=== PATIENT | female | born 1940 | race Caucasian/White ===

== ENCOUNTER → 2016-07-13 | Outpatient (CLI) | payer BC, OTHER ==
[~2016-07-13] MED LIST: ALBUAER2 INH; EPP3/2 IM; ERGO1CAP35 PO; HYDR12.55 PO; LISI-461 PO; PRM/3 PO; TRAM-10 PO
[2016-07-13 17:50] LABS: BLOOD UREA NITROGEN 25 mg/dl (7-18); BUN/CREATININE RATIO 20.5 (10-20); CALCIUM 9.2 mg/dl (8.5-10.1); CARBON DIOXIDE 27 mmol/L (21-32); CHLORIDE 105 mmol/L (98-107); GLUCOSE 80 mg/dl (70-99); POTASSIUM 3.8 mmol/L (3.5-5.1); SODIUM 141 mmol/L (136-145)
== END | disposition home or self-care (01) ==
LOC: C.LABPBG 13:20
PROVIDERS: ATTEND Family Medicine
DX: R94.6 Abnormal results of thyroid function studies (principal); I10 Essential (primary) hypertension

== ENCOUNTER → 2016-07-31 | Outpatient (CLI) | payer BC, OTHER ==
--- NOTE | 2016-08-03 13:48 | MAMMOGRAPHY REPORT ---
BILATERAL DIGITAL SCREENING MAMMOGRAM WITH CAD: 07/31/2016 CLINICAL HISTORY: Routine screening. The patient reported to the technologist that she has right br east tenderness since her dog jumped on her a few months ago. TECHNIQUE: Current study was also evaluated with a Computer Aided Detection (CAD) system. COMPARISON: Comparison is made to exams dated: 04/06/2014 mammogram, 10/23/2010 mammogram, 08/15/2014 mammogram - [facility], and 12/12/2007 mammogram - [facility]. BREAST COMPOSITION: The tissue of both breasts is heterogeneously dense, which may obscure small ma sses. FINDINGS: No suspicious masses, calcifications, or areas of architectural distortion are noted in e ither breast. There has been no significant interval change compared to prior exams. Bilateral nanette gn-appearing calcifications are not significantly changed. Round circumscribed benign-appearing mas s in the left 3:00 anterior breast is again noted, and was shown to represent a benign cyst on the rior 2014 ultrasound exam. IMPRESSION: ACR BI-RADS CATEGORY 2: BENIGN There is no mammographic evidence of malignancy. A 1 year screening mammogram is recommended. The p atient will receive written notification of the results. Approximately 10% of breast cancers are not detected with mammography. A negative mammographic repor t should not delay biopsy if a clinically suggestive mass is present. Sasha Alegria M.D. ah/:07/31/2016 15:38:24 [employer] Loft Repairer: Bing Valdovinos RT(R)(M), [facility] letter sent: Normal 1/2 BI-RADS Code: ACR BI-RADS Category 2: Benign
== END | disposition home or self-care (01) ==
LOC: C.MAMM 13:20
PROVIDERS: ATTEND Family Medicine
DX: Z12.31 Encounter for screening mammogram for malignant neoplasm of breast (principal)

== ENCOUNTER → 2016-09-24 | Outpatient (CLI) | payer BC, OTHER ==
[2016-09-24 18:09] LABS: BASO % 0.6 %; BASO ABS # 0.04 K/uL (0-0.2); COMPLETE YES; HEMATOCRIT 37.6 % (37-47); LYMPH % 25.1 %; LYMPH ABS # 1.72 K/uL (1.2-3.4); MEAN CELL VOLUME 90.2 fL (80-100); MEAN CORPUSCULAR HEMOGLOBIN 28.8 pg (25-34); MEAN CORPUSCULAR HGB CONC 31.9 g/dl (32-36); MEAN PLATELET VOLUME 11.9 fL (7.4-10.4); MONO % 6.6 %; NEUT % 61.7 %; PLATELET COUNT 231 K/uL (130-400); RED BLOOD COUNT 4.17 M/uL (4.2-5.4); WHITE BLOOD COUNT 6.85 K/uL (4.8-10.8)
[2016-09-24 18:22] LABS: ALT/SGPT 17 U/L (12-78); AST/SGOT 15 U/L (15-37); BLOOD UREA NITROGEN 16 mg/dl (7-18); BUN/CREATININE RATIO 14.3 (10-20); CALCIUM 8.7 mg/dl (8.5-10.1); CARBON DIOXIDE 27 mmol/L (21-32); CHLORIDE 107 mmol/L (98-107); GLUCOSE 88 mg/dl (70-99); MAGNESIUM 2.3 mg/dl (1.8-2.4); POTASSIUM 3.5 mmol/L (3.5-5.1); SODIUM 140 mmol/L (136-145)
[2016-09-24 18:30] LABS: ALB/GLOB RATIO 1.1 (0.9-2); ALKALINE PHOSPHATASE 75 U/L (45-117); CHOLESTEROL 242 mg/dl (0-200); CHOLESTEROL/HDL RATIO 3.2; HDL CHOLESTEROL 76 mg/dl; LDL CHOLESTEROL CALCULATED 145 mg/dl; TRIGLYCERIDES 105 mg/dl (0-150); VERY LOW DENSITY LIPOPROT CALC 21 mg/dl
[2016-09-24 19:32] LABS: LYME DISEASE AB IGM NEG (NEG)
[2016-09-24 19:35] LABS: LYME DISEASE AB IGG NEG (NEG)
[2016-09-25 03:23] LABS: RAPID PLASMA REAGIN NONREACTIVE (NONREACT)
[2016-09-25 06:41] LABS: ESTIMATED AVERAGE GLUCOSE 123 mg/dl; HA1C FLAG Normal (Normal)
--- NOTE | 2016-10-01 11:00 | CODING QUERY MEDICAL NECESSITY ---
CQSUPPORTING DIAGNOSIS NEEDED A supporting diagnosis is required for the test/procedure performed on this patient in order for us to be reimbursed by the patient's insurance. Please provide a supporting diagnosis for the following test/procedure listed below next to the test name along with your signature. *If there is no additional diagnosis for this patient that would support the following test/procedure please document that below next to the test/procedure. Test(s)/Procedure(s) that require a supporting diagnosis: DOS 09/24/16 GLYCATED HEMOGLOBIN TEST SCREENING FOR SEXUALLY TRANSMITTED DISEASE Provider Signature: Date: Thank you Rebecca William Health Information Management Once completed, please kindly fax back to [phone] For questions please call [phone]
== END | disposition home or self-care (01) ==
LOC: C.LABPBG 10:57
PROVIDERS: ATTEND Nurse Practitioner Adult Health
DX: Z00.00 Encounter for general adult medical examination without abnormal findings (principal); M79.1 Myalgia; R20.2 Paresthesia of skin; R53.83 Other fatigue; E55.9 Vitamin D deficiency, unspecified; R94.6 Abnormal results of thyroid function studies; I10 Essential (primary) hypertension

== ENCOUNTER → 2017-01-21 | Outpatient (CLI) | payer BC, OTHER ==
[2017-01-21 12:32] LABS: BASO % 0.3 %; BASO ABS # 0.02 K/uL (0-0.2); COMPLETE YES; EOS % 6.5 %; HEMATOCRIT 38.2 % (37-47); IG% 0.3 %; LYMPH % 30.5 %; LYMPH ABS # 2.16 K/uL (1.2-3.4); MEAN CELL VOLUME 91.2 fL (80-100); MEAN CORPUSCULAR HEMOGLOBIN 28.6 pg (25-34); MEAN CORPUSCULAR HGB CONC 31.4 g/dl (32-36); MEAN PLATELET VOLUME 11.5 fL (7.4-10.4); MONO % 11.4 %; PLATELET COUNT 265 K/uL (130-400); RED BLOOD COUNT 4.19 M/uL (4.2-5.4); WHITE BLOOD COUNT 7.08 K/uL (4.8-10.8)
[2017-01-21 12:39] LABS: ALT/SGPT 15 U/L (12-78); BLOOD UREA NITROGEN 21 mg/dl (7-18); BUN/CREATININE RATIO 21.2 (10-20); CALCIUM 8.5 mg/dl (8.5-10.1); CARBON DIOXIDE 28 mmol/L (21-32); CHLORIDE 109 mmol/L (98-107); CHOLESTEROL 209 mg/dl (0-200); GLUCOSE 90 mg/dl (70-99); POTASSIUM 3.9 mmol/L (3.5-5.1); SODIUM 142 mmol/L (136-145); TRIGLYCERIDES 143 mg/dl (0-150); VERY LOW DENSITY LIPOPROT CALC 29 mg/dl
[2017-01-21 12:47] LABS: ESTIMATED AVERAGE GLUCOSE 126 mg/dl; HA1C FLAG Normal (Normal)
[2017-01-21 12:50] LABS: ALKALINE PHOSPHATASE 80 U/L (45-117); AST/SGOT 12 U/L (15-37); CHOLESTEROL/HDL RATIO 2.7; HDL CHOLESTEROL 77 mg/dl; LDL CHOLESTEROL CALCULATED 103 mg/dl
[2017-01-21 13:04] LABS: URINE APPEARANCE CLEAR (CLEAR); URINE BILIRUBIN NEG (NEG); URINE COLOR YELLOW; URINE EPITHELIAL CELL AUTO >30 /lpf (0-5); URINE NITRITE NEG (NEG); URINE SPECIFIC GRAVITY 1.023 (1.000-1.030); UROBILINOGEN NEG (NEG)
[2017-01-21 13:14] LABS: MANUAL MICROSCOPIC REQUIRED? NO; REVIEW REQ? NO
== END | disposition home or self-care (01) ==
LOC: C.LABPBG 08:09
PROVIDERS: ATTEND Family Medicine
DX: I10 Essential (primary) hypertension (principal); R73.03 Prediabetes; E78.5 Hyperlipidemia, unspecified; R42 Dizziness and giddiness

== ENCOUNTER → 2017-01-28 | Outpatient (CLI) | payer BC, OTHER ==
[~2017-01-28] MED LIST changes: +OPTIRAY 320 IV PRN
--- NOTE | 2017-01-28 10:58 | DIAGNOSTIC IMAGING REPORT ---
CT ABD/PELVIS COMBO CLINICAL HISTORY: Hematuria COMPARISON STUDY: Noncontrast CT scan dated 12/30/2014 TECHNIQUE: Unenhanced images were obtained through the abdomen and pelvis. The patient was injected with 50 cc of Optiray 320. After 5 minute delay, the patient was reimaged in a dynamic helical fashion during the additional administration of 43 cc of Optiray 320. A dose lowering technique was utilized adhering to the principles of ALARA. CT DOSE: 1323.38 mGycm FINDINGS: Lower chest: There are mild basilar atelectatic changes. Liver: There is scattered hepatic hypodensities, likely representing cysts. Gallbladder: Unremarkable. Spleen: Normal in size and attenuation. Pancreas: There is an 11 mm cystic lesion within the pancreatic head, possibly representing an IPMN. 12 month follow-up MRI study is recommended Adrenal glands: Unremarkable. Kidneys: No renal, ureteral, or bladder calculi are visualized. There is a 13 mm upper pole renal cyst containing a punctate mural calcification. No collecting system filling defects are visualized. There is incomplete left renal rotation. No ureteral defects are visualized. Bowel: There are no transition zones indicate bowel obstruction. There is colonic diverticulosis. There are no acute peridiverticular inflammatory changes. Peritoneum: There is no intraperitoneal free air or abdominal ascites. Vasculature: The abdominal aorta is normal in course and caliber. Adenopathy: None. Pelvic viscera: The bladder, and pelvic viscera are unremarkable. 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 No destructive lesions are visualized. There is a stable sclerotic lesion within the left symphysis pubis likely are presenting a bone island. IMPRESSION: 1. No renal, ureteral, or bladder calculi identified 2. 13 mm upper pole left renal cyst containing a punctate mural calcification 3. No collecting system or ureteral lesions identified 4. 11 mm cystic lesion within the pancreatic head possibly representing an IPMN. 12 month follow-up MRI is recommended Electronically signed by: Andrei Campbell M.D. 01/28/2017 10:57 AM Dictated Date/Time: 01/28/2017 10:49 AM
== END | disposition home or self-care (01) ==
LOC: C.CTS 10:06
PROVIDERS: ATTEND Family Medicine
DX: N28.1 Cyst of kidney, acquired (principal); R31.9 Hematuria, unspecified

== ENCOUNTER → 2017-04-29 | Outpatient (CLI) | payer BC ==
[~2017-04-29] MED LIST changes: -OPTIRAY 320 IV PRN
== END | disposition home or self-care (01) ==
LOC: C.PATHSPEC 11:56
PROVIDERS: ATTEND Urology
DX: R31.29 Other microscopic hematuria (principal); N28.1 Cyst of kidney, acquired

== ENCOUNTER → 2017-05-03 | Outpatient (CLI) | payer BC, OTHER ==
--- NOTE | 2017-05-03 14:13 | DIAGNOSTIC IMAGING REPORT ---
MRI OF THE RIGHT SHOULDER CLINICAL HISTORY: Chronic right shoulder pain. COMPARISON STUDY: No priors. TECHNIQUE: MRI of the right shoulder was performed utilizing various T1 and T2 weighted sequences in the axial, sagittal, coronal planes. IV contrast was not administered for this examination. FINDINGS: Rotator cuff: There is tendinopathy of the infraspinatus tendon with a large full-thickness tear. There is at least 2.4 cm of musculotendinous retraction. There is tendinopathy with extensive tearing of the supraspinatous tendon. A full-thickness tear measures at least 6 mm as seen on image #9. There is no significant musculotendinous retraction. There is tendinopathy of the subscapularis tendon which appears intact. The teres minor tendon is preserved. There is subacromial and subdeltoid bursal fluid. Productive degenerative change is seen at the acromioclavicular joint. Biceps tendon: The long head of the biceps tendon is mildly tendinopathy and located within the bicipital groove. The anchor is maintained. Labrum: There is degenerative fraying and truncation of the glenoid labrum. Shoulder joint: There is note that interpretation is suboptimal without plain film correlate. The examination is also degraded by motion artifact. A large Joint effusion. There is mild thinning of the articular cartilage over the glenoid humeral head. Spurring is seen along the inferior aspect of the right. Mild arthritic changes seen in the greater tuberosity. Musculature and soft tissues: There is generalized atrophy of the regional musculature. There is slightly asymmetric atrophy and intramuscular edema involving the body of infraspinatus. There is also mild edema within the body of supraspinatus. IMPRESSION: 1. There is tendinopathy of the infraspinatus with full-thickness rupture and at least 2.4 cm of musculotendinous retraction. 2. There is tendinopathy with extensive partial thickness tearing as well as a full-thickness tear of the supraspinatus tendon. No musculotendinous retraction is seen. 3. There is intramuscular edema and slightly asymmetric atrophy within the body of infraspinatus. 4. There is degenerative fraying and truncation of the labrum. 5. The long head of the biceps tendon appears intact. 6. Joint effusion and arthritic change as above. Electronically signed by: Horace Knight M.D. 05/03/2017 2:11 PM Dictated Date/Time: 05/03/2017 2:04 PM
== END | disposition home or self-care (01) ==
LOC: C.MRI 11:34
PROVIDERS: ATTEND Orthopaedic Surgery Sports Medicine
DX: M25.511 Pain in right shoulder (principal)

== ENCOUNTER → 2017-05-14 | Outpatient (CLI) | payer BC, OTHER ==
[2017-05-14 14:14] LABS: BASO % 0.3 %; BASO ABS # 0.02 K/uL (0-0.2); COMPLETE YES; EOS % 4.1 %; HEMATOCRIT 38.8 % (37-47); LYMPH % 26.2 %; LYMPH ABS # 1.54 K/uL (1.2-3.4); MEAN CORPUSCULAR HEMOGLOBIN 28.3 pg (25-34); MEAN CORPUSCULAR HGB CONC 32.2 g/dl (32-36); MEAN PLATELET VOLUME 10.9 fL (7.4-10.4); MONO % 5.1 %; NEUT % 64.3 %; PLATELET COUNT 213 K/uL (130-400); RED BLOOD COUNT 4.41 M/uL (4.2-5.4); WHITE BLOOD COUNT 5.88 K/uL (4.8-10.8)
[2017-05-14 14:36] LABS: BLOOD UREA NITROGEN 17 mg/dl (7-18); BUN/CREATININE RATIO 18.9 (10-20); CALCIUM 8.8 mg/dl (8.5-10.1); CARBON DIOXIDE 26 mmol/L (21-32); CHLORIDE 108 mmol/L (98-107); CREATININE 0.91 mg/dl (0.60-1.20); GLUCOSE 87 mg/dl (70-99); POTASSIUM 3.8 mmol/L (3.5-5.1); SODIUM 140 mmol/L (136-145)
--- NOTE | 2017-05-14 14:50 | DIAGNOSTIC IMAGING REPORT ---
CHEST 2 VIEWS ROUTINE CLINICAL HISTORY: PRE OP TESTING COMPARISON STUDY: 02/16/2016 FINDINGS: The bones soft tissues and hemidiaphragms are normal. The cardiomediastinal silhouette is normal. The lungs are clear. The pulmonary vasculature is normal. IMPRESSION: Negative chest. The above report was generated using voice recognition software. It may contain grammatical, syntax or spelling errors. Electronically signed by: Froylan Calix M.D. 05/14/2017 2:49 PM Dictated Date/Time: 05/14/2017 2:48 PM
== END | disposition home or self-care (01) ==
LOC: C.CPL 13:46
PROVIDERS: ATTEND Orthopaedic Surgery Sports Medicine
DX: Z01.810 Encounter for preprocedural cardiovascular examination (principal); Z01.811 Encounter for preprocedural respiratory examination; Z01.812 Encounter for preprocedural laboratory examination

== ENCOUNTER 2017-06-02 10:02 | Day surgery (SDC) | payer BC, OTHER ==
[2017-05-21 08:07] VITALS: BMI 25.0
--- NOTE | 2017-06-01 18:00 | HISTORY & PHYSICAL EXAMINATION ---
DATE OF ADMISSION: 06/02/2017 CHIEF COMPLAINT: Chronic right shoulder pain. HISTORY OF PRESENT ILLNESS: This is a 76-year-old female patient of Dr. Camargo'tristian complaining of right shoulder pain for a number of years now. She had no significant injury or trauma. She is noting progressively worsening symptoms over the last 3 months. MRI has confirmed impingement, distal clavicle, AC arthritis and a rotator cuff tear. After failure of conservative treatment, patient wishes to proceed with a right shoulder arthroscopic subacromial decompression, distal clavicle excision and rotator cuff repair. PAST MEDICAL HISTORY: Heart murmur, hypertension, asthma, osteoarthritis, acid reflux, hiatal hernia; she has dentures. SOCIAL HISTORY: Nonsmoker, nondrinker. PAST SURGICAL HISTORY: Hysterectomy, right knee surgery, left buttock and breast surgery and hemorrhoid surgery. FAMILY HISTORY: Noncontributory. REVIEW OF SYSTEMS: The patient complains of chronic right shoulder pain and weakness. Otherwise, denies any shortness of breath, chest pain, nausea, vomiting or any other joint complaints. MEDICATIONS: Include lisinopril and estradiol with tramadol as needed. Please see dosages and administrations on admission. ALLERGIES: INCLUDE CEFTIN AND SULFA. PHYSICAL EXAMINATION: GENERAL: Well-developed, well-nourished 76-year-old female in no acute distress. She is alert and oriented x3 and pleasant. HEENT: Normocephalic, atraumatic. Extraocular motions are intact. Pupils are equal and reactive to light. HEART: Regular rate and rhythm with a murmur of 2/6 appreciated. LUNGS: Clear. ABDOMEN: Soft and nontender, bowel sounds are present. EXTREMITIES: Right shoulder revealed external rotation strength of 3/5 and internal 4/5. Active range of motion of 45 degrees, passively to full range of motion. She has pain with active and passive range of motion. NEUROLOGIC: Neurovascularly, she is intact in her right upper extremity. DIAGNOSES: Right shoulder impingement, acromioclavicular arthritis and rotator cuff tear. She has a history of a heart murmur, hypertension, asthma, osteoarthritis, acid reflux, and hiatal hernia. PLAN: The patient was advised of her diagnosis. Indications, risks, benefits, and postop course have all been reviewed. The patient wishes to proceed with a right arthroscopic subacromial decompression, distal clavicle excision and rotator cuff repair on the shoulder. Necessary consent forms, preoperative testing and clearances will be obtained.
[~2017-06-02] VITALS: Ht 165.1 cm; Wt 68.2 kg
[~2017-06-02 10:02] MED LIST changes: -ALBUAER2 INH; +ATROPINE SULFATE 0.1 MG/ML 5ML SYR IV PRN; +CLINDAMYCIN 600 MG/54 ML D5W IV SCH; -ERGO1CAP35 PO; +ESTR0.5T3 PO; +EpHEDrine SULFATE INJ 50 MG/ML AMP IV PRN; +FENTANYL CITRATE INJ 50 MCG/1 ML 2 ML VIAL IV PRN; -HYDR12.55 PO; +LACTATED RINGER'S 1000ML 1,000 ML IV SCH; +LORA-741 PO; +ONDANSETRON INJ 2 MG/ML 2 ML VIAL IV PRN; -PRM/3 PO; +ROPIVACAINE 0.5% 5 MG/ML 30 ML VIAL ONE
[2017-06-02 10:30] VITALS: BP 174/71; PULSE 79; TEMP 36.3; O2SAT 100; Ht 165.1 cm; Wt 68.2 kg
[2017-06-02] MEDS ORDERED: ONDANSETRON INJ 2 MG/ML 2 ML VIAL ONE (12:35)
[2017-06-02] MEDS ORDERED: SUCCINYLCHOLINE CHLORIDE 20 MG/ML 10 ML VIAL IV ONE (12:35)
[2017-06-02] MEDS ORDERED: FENTANYL CITRATE INJ 50 MCG/1 ML 2 ML VIAL ONE ×3 (12:35→16:18)
[2017-06-02] MEDS ORDERED: DEXAMETHASONE SOD INJ 4 MG/ML VIAL ONE (12:35)
[2017-06-02] MEDS ORDERED: PHENYLEPHRINE HCL INJ 10 MG/ML VIAL ONE (12:35)
[2017-06-02] MEDS ORDERED: GLYCOPYRROLATE INJ 0.2 MG/ML VIAL ONE (12:35)
[2017-06-02] MEDS ORDERED: LIDOCAINE HCL 2% 2 ML VIAL (20MG/ML) ONE (12:35)
[2017-06-02] MEDS ORDERED: PROPOFOL IV EMULSION 10 MG/ML 20 ML VIAL IV ONE (12:35)
[2017-06-02] MEDS ORDERED: MIDAZOLAM HCL 1 MG/ML 2ML VIAL ONE (12:35)
[2017-06-02] MEDS ORDERED: NEOSTIGMINE METHYLSULFATE 5 MG/5 ML SYR ONE (12:35)
[2017-06-02] MEDS ORDERED: EpHEDrine SULFATE INJ 50 MG/ML AMP ONE (12:35)
--- NOTE | 2017-06-02 13:06 | History & Physical Bridge Note ---
H&P Re-Evaluation Bridge Note: I have examined the patient, reviewed the History & Physical and in the interval since the performance of the History & Physical I have noted the following changes of clinical significance: No changes noted
[2017-06-02] MEDS ORDERED: EpINEphrine HCL INJ 1 MG/ML 5ML SYRINGE ONE ×3 (14:09→14:47)
[2017-06-02] MEDS ORDERED: METOPROLOL TARTRATE 1 MG/ML VIAL ONE (15:42)
[2017-06-02] MEDS ORDERED: ESMOLOL HCL 10 MG/ML 10 ML VIAL ONE (15:42)
[2017-06-02] MEDS ORDERED: SODIUM CHLORIDE 0.9% 1000ML 1,000 ML IV SCH (15:59)
[2017-06-02] MEDS ORDERED: OXYCODONE/ACETAMINOPHEN 5-325 TAB PO PRN ×2 (16:00)
[2017-06-02] MEDS ORDERED: RXC5 PO (16:03)
--- NOTE | 2017-06-02 16:04 | [facility] Post Operative Brief Note ---
Immediate Operative Summary Operative Date Jun 02, 2017. Pre-Operative Diagnosis Right shoulder impingement, acromioclavicular arthritis and rotator cuff tear Post-Operative Diagnosis Right shoulder impingement, acromioclavicular arthritis and rotator cuff tear, DJD glenohumeral joint Procedure(s) Performed Right Shoulder Arthroscopic Subacromial Decompression, Distal Clavicle Excision , Rotator Cuff Repair; debridement glenohumeral joint Surgeon Dr. Camargo Molder Vacuum Surgeon(s) Froylan Pacheco PA-C Estimated Blood Loss 10cc Findings as above Specimens none Drains none Anesthesia general and regional Complication(s) None Disposition Recovery Room / PACU
--- NOTE | 2017-06-02 16:06 | Discharge Instructions ---
Discharge Instructions Date of Service Jun 02, 2017. Admission Reason for Admission: Right Shoulder Impingement Syndrome, Osteoarthriti Discharge Discharge Diagnosis / Problem: Right shouler Rotator cuff repair Discharge Goals Goal(s): Improve function Activity Recommendations Activity Limitations: as noted below . Instructions / Follow-Up Instructions / Follow-Up Please see home instruction sheet and home exercise sheet. NO formal physical therapy needed until you follow up in the office. Follow up with Dr. Camargo's office 10-12 days post op as scheduled, call to confirm appt. Current Hospital Diet Patient's current hospital diet: Discharge Diet Recommended Diet: Regular Diet Procedures Procedures Performed: Right Shoulder Arthroscopic Subacromial Decompression, Distal Clavicle Excision , Rotator Cuff Repair; debridement glenohumeral joint Pending Studies Studies pending at discharge: no Medical Emergencies . Who to Call and When: Medical Emergencies: If at any time you feel your situation is an emergency, please call 911 immediately. . Non-Emergent Contact Non-Emergency issues call your: Primary Care Provider . "Provider Documentation" section prepared by Froylan Pacheco. . VTE Core Measure Inpt VTE Proph given/why not?: [facility] [place] Drug Monitoring Program Search Results: patient reviewed within database, no issues identified
--- NOTE | 2017-06-02 16:28 | OPERATIVE REPORT ---
DATE OF OPERATION: 06/02/2017 INDICATION FOR PROCEDURE: The patient is a 76-year-old female with chronic right shoulder pain. She still very active individual. She has had a chronic rotator cuff tear that she has been treating conservatively putting off surgery eventually and now wants to proceed with a rotator cuff repair surgery. She does have a type 2-3 acromion process, hypertrophic AC joint with a moderately advanced AC joint arthritis causing subacromial impingement, retracted rotator cuff tear involving both supraspinatus and infraspinatus and intact biceps tendon. PREOPERATIVE DIAGNOSES: Right shoulder chronic rotator cuff tear, impingement syndrome, and acromioclavicular joint osteoarthritis. POSTOPERATIVE DIAGNOSES: Same including glenohumeral osteoarthritis, minor tendinopathy of the biceps tendon, chronic subacromial bursitis and subacromial bursal adhesions. PROCEDURE: Right shoulder arthroscopic rotator cuff repair, subacromial decompression, distal clavicle excision, debridement of glenohumeral joint DJD, subacromial bursa and bursal adhesions. SURGEON: Dr. Camargo. REPAIR TECHNICIAN: Froylan Pacheco PA-C. ANESTHESIA: Regional block and general. DESCRIPTION OF PROCEDURE: The patient was taken to the operating room, anesthetized with regional block and general anesthetic. [facility] 70 degree beach chair position. Her right shoulder was sterilely prepped and draped with ChloraPrep. Exam demonstrates she had good range of motion even though a little bit of ligamentous laxity with sulcus sign and anterior translation 1+/3. The arthroscopy was started with a posterior arthroscopy portal in the soft spot, subsequent anterior portal was made in the rotator interval. A lateral subacromial working portal was placed, 2 superior lateral suture anchor portals were placed, and 1 small tiny incision for a traction suture was placed anterior to the lateral portal anterolaterally. In the glenohumeral joint, the patient had several areas of delaminating articular surface on the humeral head and signs of some global osteoarthritis developing on the humeral head. There was no exposed bone, there was one area of about 6-7 mm in diameter that had some fibrocartilaginous base and near full thickness loss, other areas were just delaminating flaps. The glenoid saw with good articular surface. The labrum was intact circumferentially. Biceps tendon was intact, its anchor was intact, biceps had a little bit of thickening and widening and just some very superficial wear on the biceps underlying the rotator cuff tear area, but no major fraying and tendinopathy noted. Subscapularis tendon was intact. The supraspinatus tendon was torn completely extending all the way back to the infraspinatus tendon which was completely torn and teres minor was still intact. The infraspinatus was retracted more medially than supraspinatus and infraspinatus had a laminated tear between the superior and inferior leafs of the supraspinatus with a tear in 2 planes. The supraspinatus was all in 1 plane. There was chronic thickened subacromial bursa overlying the cuff tear and there was fraying of the CA ligament, type 3 acromion process, prominent inferior AC joint causing impingement, which also causes some tendinopathic erosion of the mid portion of the supraspinatus exposing some of the deeper fibers of the supraspinatus due to erosion under the AC joint. The distal clavicle itself there were several areas of exposed bone on distal clavicle. Attention was first taken to debriding the humeral articular surface and the unstable flaps were all debrided back to a smoother surface. We did remove some of the synovitis in the glenohumeral joint and coagulation bleeders with the radiofrequency ablator. I looked at the superior capsule, did not appear to be contracted, so I did not have to do any capsular release. In the subacromial space, a thorough bursectomy was performed removing all the thickened bands of bursal tissue. The bursal side of the rotator cuff was debrided, the radiofrequency ablator was used to ablate the bursa and periosteum on the undersurface of the acromion and released the CA ligament off the anterior acromial spur and ablated the inferior AC joint capsule, exposed 1 cm of distal clavicle. A portion of the CA ligament was resected under the AC joint. The footprint of the supraspinatus was debrided from the articular margin all the way out to the lateral greater tuberosity off the edge of the lateral greater tuberosities stimulating healing response further cuff. The edges of the rotator cuff were debrided and the interval between the inferior and superior flap of the infraspinatus was debrided. I used a suture manipulator to place traction on the rotator cuff and it was felt that I could mobilize it out for an anatomic repair. At this point, I went ahead and placed a #2 Ultrabraid traction suture using a long recheck technique into the anterior edge of the infraspinatus and posterior aspect of the supraspinatus. We placed this through a separate traction portal and with traction on the rotator cuff, we were able to release some bursal adhesions until we could see the muscle belly fibers well and I completely released the infraspinatus to mobilize it out to the greater tuberosity. The rotator cuff was then repaired with a dual-row fixation. The medial row was 2 Healicoil suture anchors which were 5.5 mm anchors which were double loaded with 2 Ultrabraid. Sutures were passed in a horizontal mattress fashion with a scHubCastion and [employer] suture passer. Posteriorly, we did catch both leaves of the infraspinatus with the sutures so they were sutured together. The horizontal mattress sutures were all tied first. The traction suture was removed. One suture from each anchor, total of 4 sutures were placed into 1 anterior footprint anchor and then 4 the sutures into the posterior footprint anchor with a crisscross compression across the repair site. I used the sutures again and we passed through some dog ears anteriorly and posteriorly to repair those so we had a nice contour of the repair from anterior to posterior. The arm was taken through range of motion and the repair was stable with the arm at the side and with rotation. We did do a decompression with a 5.5 bur planing down the acromion to a type 1 flat shape and resecting 1 cm of distal clavicle. All debris was irrigated of subacromial space. All pathological bursa was resected. The portal sites were closed with nylon sutures then sterile dressings were applied and abduction pillow sling immobilizer was placed. The patient had minimal blood loss. She tolerated the procedure well. WILFRED Hung was my first assist. He functioned as first assist for the entire procedure. He assisted in patient positioning, prepping, draping, arm positioning, instrument management, suture management and did the skin closure, dressings, brace application and will participate in postoperative care of the patient. I attest to the content of the Intraoperative Record and any orders documented therein. Any exception s are noted below.
--- NOTE | 2017-06-02 16:36 | Anesthesiology Progress Note ---
Anesthesia Post Op Note Date & Time Jun 02, 2017 at 16:36 Vital Signs Pain Intensity: 5 Vital Signs Past 12 Hours Date Time Temp Pulse Resp B/P (MAP) Pulse Ox O2 Delivery O2 Flow Rate FiO2 06/02/17 16:30 78 18 150/76 95 Room Air 06/02/17 16:20 75 19 154/70 100 Oxymask 10 06/02/17 16:10 94 20 157/92 99 Oxymask 10 06/02/17 16:03 36.3 88 16 157/68 100 Oxymask 10 06/02/17 10:30 36.3 79 18 174/71 (105) 100 Room Air Notes Mental Status: alert / awake / arousable, participated in evaluation Pt Amnestic to Procedure: Yes Nausea / Vomiting: adequately controlled Pain: adequately controlled Airway Patency, RR, SpO2: stable & adequate BP & HR: stable & adequate Hydration State: stable & adequate Anesthetic Complications: no major complications apparent
[2017-06-02 16:48] VITALS: BP 155/68; PULSE 61; TEMP 36.2; O2SAT 94
[2017-06-02 17:20] VITALS: BP 149/67; PULSE 63; TEMP 36.6; O2SAT 99
[2017-06-02 17:50] VITALS: BP 169/80; PULSE 73; TEMP 36.5; O2SAT 94
== END 2017-06-02 17:52 | disposition home or self-care (01) ==
LOC: C.ACU 10:02
PROVIDERS: ATTEND Orthopaedic Surgery Sports Medicine
DX: M75.101 Unspecified rotator cuff tear or rupture of right shoulder, not specified as traumatic (principal); M75.01 Adhesive capsulitis of right shoulder; M19.011 Primary osteoarthritis, right shoulder; I10 Essential (primary) hypertension; J44.9 Chronic obstructive pulmonary disease, unspecified; K21.9 Gastro-esophageal reflux disease without esophagitis; R01.1 Cardiac murmur, unspecified; K44.9 Diaphragmatic hernia without obstruction or gangrene; Z90.710 Acquired absence of both cervix and uterus

== ENCOUNTER → 2017-09-27 | Outpatient (CLI) | payer BC, OTHER ==
[~2017-09-27] MED LIST changes: -ATROPINE SULFATE 0.1 MG/ML 5ML SYR IV PRN; -CLINDAMYCIN 600 MG/54 ML D5W IV SCH; -EpHEDrine SULFATE INJ 50 MG/ML AMP IV PRN; -FENTANYL CITRATE INJ 50 MCG/1 ML 2 ML VIAL IV PRN; -LACTATED RINGER'S 1000ML 1,000 ML IV SCH; -ONDANSETRON INJ 2 MG/ML 2 ML VIAL IV PRN; -ROPIVACAINE 0.5% 5 MG/ML 30 ML VIAL ONE; +RXC5 PO; -TRAM-10 PO
== END | disposition home or self-care (01) ==
LOC: C.LABSPEC 10:48
PROVIDERS: ATTEND Urology
DX: N39.0 Urinary tract infection, site not specified (principal)

== ENCOUNTER 2018-10-22 05:22 | Inpatient (IN) ==
[2018-10-22] MEDS ORDERED: fentaNYL citrate 100 MCG/2 ML VIAL IV STA (05:45)
[2018-10-22] MEDS ORDERED: HYDROCODONE/HOMATROPINE SYRUP 5MG/1.5MG 5ML UDP PO STA (05:45)
[2018-10-22] MEDS ORDERED: ALBUT/IPRATROP 3MG/0.5MG NEB 3 ML VIAL NEB STA (05:45)
--- NOTE | 2018-10-22 06:00 | Emergency Department Note ---
ED Provider Note Name: Maryuri Sol Age: 78F Arrives Via: EMS Informant: Pt CC: Cough HPI: 78 female arrives for evaluation of cough. Patient with several weeks of feeling short of breath with periodic cough. Using HFA inhaler with moderate improvement until 3 days ago when cough significantly worse. This evening notes that developed worsening right chest pain under scapula. Stabbing in nature, worse with coughing. Notes feeling short of breath. Also with diffuse body aches, fatigue, loss of appetite and lightheadedness. Admits multiple tick bites over last few weeks. Coughing makes symptoms worse, rest makes better. No recent antibiotics. Denies fevers, vomiting, syncope, headache, neck pain, abdominal pain, urinary/bowel changes, leg swelling, rashes (other than tick bites), nor other symptoms. History of Lyme disease last year treated with doxycycline. ROS: See above HPI for pertinent positives & negatives. A total of 10 systems reviewed and were otherwise negative. 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 Anxious. EYES: No scleral icterus, unremarkable pupils. ENT: Mucous membranes moist, no nasal congestion. NECK: No masses appreciated, no meningismus, trachea is midline. RESPIRATORY: Constant coughing, short of breath. Mild wheezing bilaterally. CARDIOVASCULAR: Vague TTP below right scapula. Tachy. No murmurs, rubs, gallops appreciated. GASTROINTESTINAL: Abdomen soft, non-tender, no peritonitis. Bowel sounds positive. No masses appreciated. BACK: No midline tenderness, no CVA tenderness EXTREMITIES: Normal motion all extremities, no cyanosis, no edema. NEUROLOGIC: Alert and oriented, no acute motor or sensory deficits, no focal weakness, cranial nerves grossly intact. SKIN: No rash, no jaundice, no diaphoresis. ED Course: Prior Medical Record, Triage/Nursing Notes, Medications, Allergies reviewed by Me Vital Signs: reviewed and remarkable for HTN, Tachy Labs: Reviewed and remarkable for elevated wbc Interventions: Saline Lock, NSS bolus, Hycodan, Fentanyl, duoneb Imaging: X ray results are stated below per my interpretation: Chest: 1 view: Right middle low infiltrate with wedge shape EKG: Per My Interpretation: Indication Short of breath: NSR 97 bpm without ectopy nor ischemia. QTC 441 Consults: none Reassessments/Times: Feeling improved though still short of breath Blood pressure: Normal. No Referral necessary Disposition: Signed out to Dr Porter Differentials: Infectious, Reactive Airway Disease, Pneumonia, Pneumothorax, COPD, CHF, ACS, Pulmonary Embolism, MSK, GI, Dissection, amongst other etiologies entertained. amongst other pathologies. Medical Decision Makin yr old female with shortness of breath and pneumonia on cxr. She is quite uncomfortable appearing and thus pain meds given. With shortness of breath, right chest pain and wedge infiltrate on CXR I felt further imaging indicated. Does not look like TB thus I do no feel she requires isolation. She was given above and feeling better. WBC elevated thus ordered cultures and lactate. Signed out to Dr Porter pending further return labs. Impression: Right Middle Lobe Pneumonia Xiang Hobson MD Impression & Plan Right middle lobe pneumonia Past Med/Surg History Medical History History of insomnia (Resolved) Anxiety (Acute) Depression (Acute) Dyslipidemia (Acute) GERD without esophagitis (Chronic) Intraductal papillary mucinous neoplasm (Acute) Intrinsic asthma (Acute) Lumbar disc disease (Acute) Microalbuminuria (Acute) Osteopenia (Acute) Prediabetes (Acute) Solitary pulmonary nodule (Acute) Vitamin B12 deficiency (Chronic) Vitamin D deficiency (Acute) Depressive disorder Hypertension Hypercholesterolemia GERD (gastroesophageal reflux disease) Anxiety disorder Asthma Osteoarthritis Cardiac murmur HX Chronic obstructive pulmonary disease Diverticular disease Hiatal hernia Temporomandibular joint disorder CLICKS ON OCC RIGHT SIDE HAS NEVER LOCKED Surgical History History of tonsillectomy and adenoidectomy History of hysterectomy TOTAL BSO H/O right knee surgery H/O exploratory laparotomy ADHESIONS REMOVAL H/O hemorrhoidectomy H/O vein stripping BILAT LEGS History of anesthesia reaction WOKE UP DURING PROCEDURES AND HAD TO GET MORE MEDICINE TO SLEEP History of cataract surgery R/L History of dilatation and curettage History of esophagogastroduodenoscopy (EGD) WITH DILITATION History of repair of rotator cuff RIGHT Family History Grandfather (Paternal) Family history of diabetes mellitus Grandfather (Maternal) Family history of diabetes mellitus Tuberculosis Grandmother (Maternal) Family history of diabetes mellitus Family/Other Family hx of colon cancer Mother , age 72 Lung cancer Sister , age 66 Lung cancer Father , age 56 Endocarditis Social History Preferred Language: Vietnamese Communication Ability: Effective Visual Impairment: No Limitations General Clerk Required: No Beliefs That Will Affect Care: None marital status: Current Living Situation: Significant Other Current Living Situation Comment: lives alone in [facility]; 4 adult children current occupational status: employed current occupation: [employer] Part-time Other Information That Helps Us Care for You: No Feels Safe at Home: Yes Safety Concerns: Feels Safe At This Time Smoking Status: Never smoker Do You Dip or Chew Tobacco: No Second Hand Exposure: Yes (AT WORK) Tobacco Cessation Education Requested by Patient: No Hx Alcohol Use: No Hx Substance Use: No Results & Data Vital Signs Vital Signs - 24 hr 10/22/18 07:57 10/22/18 08:15 Pulse Rate [Right Radial] 99 H Respiratory Rate 18 Respiratory Effort / Characteristics Non-Labored Spontaneous Spontaneous SOB on Exertion Respiratory Depth Normal Respiratory Pattern Regular Pulse Oximetry 97 Oxygen Delivery Method Room Air Room Air Laboratory Data Result diagrams: 10/22/18 05:56 10/22/18 05:56 Lab Results 10/22/18 10/22/18 10/22/18 Range/Units 05:56 05:56 05:56 WBC 15.52 H (4.8-10.8) K/uL RBC 4.61 (4.2-5.4) M/uL Hgb 13.0 (12.0-16.0) g/dL Hct 39.1 (37-47) % MCV 84.8 (80-100) fL MCH 28.2 (25-34) pg MCHC 33.2 (32-36) g/dL RDW Std Deviation 46.4 H (36.4-46.3) fL RDW Coeff of Nurys 15.0 H (11.5-14.5) % Plt Count 221 (130-400) K/uL MPV 10.9 H (7.4-10.4) fL Immature Gran % (Auto) 0.3 % Neut % (Auto) 81.5 % Lymph % (Auto) 8.8 % [place] % (Auto) 9.0 % Eos % (Auto) 0.2 % Baso % (Auto) 0.2 % Immature Gran # (Auto) 0.04 H (0.00-0.02) K/uL Neut # (Auto) 12.67 H (1.4-6.5) K/uL Lymph # (Auto) 1.36 (1.2-3.4) K/uL [place] # (Auto) 1.39 H (0.11-0.59) K/uL Eos # (Auto) 0.03 (0-0.5) K/uL Baso # (Auto) 0.03 (0-0.2) K/uL VBG pH (7.36-7.41) VBG pCO2 (38-50) mmHg VBG pO2 mmHg VBG HCO3 mmol/L VBG O2 Saturation % VBG Base Excess mEq/L Barometric Pressure mm/Hg Sodium 139 (136-145) mmol/L Potassium 3.3 L (3.5-5.1) mmol/L Chloride 106 (98-107) mmol/L Carbon Dioxide 25 (21-32) mmol/L Anion Gap 8.0 (3-11) BUN 14 (7-18) mg/dl Creatinine 1.01 (0.6-1.2) mg/dl Est Cr Clr Drug Dosing 45.4 ml/min Est GFR ( Amer) 62.2 Est GFR (Non-Af Amer) 53.7 BUN/Creatinine Ratio 14.0 (10-20) Glucose 118 H (70-99) mg/dl Lactate (0.4-2.0) mmol/L Calcium 8.7 (8.5-10.1) mg/dl Magnesium (1.8-2.4) mg/dl Total Bilirubin 0.8 (0.2-1) mg/dl Direct Bilirubin 0.2 (0-0.2) mg/dl AST 10 L (15-37) U/L ALT 12 (12-78) U/L Alkaline Phosphatase 119 H (45-117) U/L Total Creatine Kinase (26-192) U/L Troponin I < 0.015 (0-0.045) ng/ml Total Protein 7.4 (6.4-8.2) gm/dl Albumin 3.3 L (3.4-5.0) gm/dl Lyme Disease IgG Ab Negative (Negative) Lyme Disease IgM Ab Negative (Negative) Influenza Type A (PCR) (Neg) Influenza Type B (PCR) (Neg) 10/22/18 10/22/18 10/22/18 Range/Units 05:56 06:42 06:42 WBC (4.8-10.8) K/uL RBC (4.2-5.4) M/uL Hgb (12.0-16.0) g/dL Hct (37-47) % MCV (80-100) fL MCH (25-34) pg MCHC (32-36) g/dL RDW Std Deviation (36.4-46.3) fL RDW Coeff of Nurys (11.5-14.5) % Plt Count (130-400) K/uL MPV (7.4-10.4) fL Immature Gran % (Auto) % Neut % (Auto) % Lymph % (Auto) % [place] % (Auto) % Eos % (Auto) % Baso % (Auto) % Immature Gran # (Auto) (0.00-0.02) K/uL Neut # (Auto) (1.4-6.5) K/uL Lymph # (Auto) (1.2-3.4) K/uL [place] # (Auto) (0.11-0.59) K/uL Eos # (Auto) (0-0.5) K/uL Baso # (Auto) (0-0.2) K/uL VBG pH 7.44 H (7.36-7.41) VBG pCO2 34 L (38-50) mmHg VBG pO2 46 mmHg VBG HCO3 23 mmol/L VBG O2 Saturation 82.8 % VBG Base Excess -1.0 mEq/L Barometric Pressure 735.6 mm/Hg Sodium (136-145) mmol/L Potassium (3.5-5.1) mmol/L Chloride (98-107) mmol/L Carbon Dioxide (21-32) mmol/L Anion Gap (3-11) BUN (7-18) mg/dl Creatinine (0.6-1.2) mg/dl Est Cr Clr Drug Dosing ml/min Est GFR ( Amer) Est GFR (Non-Af Amer) BUN/Creatinine Ratio (10-20) Glucose (70-99) mg/dl Lactate 1.3 (0.4-2.0) mmol/L Calcium (8.5-10.1) mg/dl Magnesium 2.1 (1.8-2.4) mg/dl Total Bilirubin (0.2-1) mg/dl Direct Bilirubin (0-0.2) mg/dl AST (15-37) U/L ALT (12-78) U/L Alkaline Phosphatase (45-117) U/L Total Creatine Kinase 88 (26-192) U/L Troponin I (0-0.045) ng/ml Total Protein (6.4-8.2) gm/dl Albumin (3.4-5.0) gm/dl Lyme Disease IgG Ab (Negative) Lyme Disease IgM Ab (Negative) Influenza Type A (PCR) (Neg) Influenza Type B (PCR) (Neg) 10/22/18 Range/Units 08:20 WBC (4.8-10.8) K/uL RBC (4.2-5.4) M/uL Hgb (12.0-16.0) g/dL Hct (37-47) % MCV (80-100) fL MCH (25-34) pg MCHC (32-36) g/dL RDW Std Deviation (36.4-46.3) fL RDW Coeff of Nurys (11.5-14.5) % Plt Count (130-400) K/uL MPV (7.4-10.4) fL Immature Gran % (Auto) % Neut % (Auto) % Lymph % (Auto) % [place] % (Auto) % Eos % (Auto) % Baso % (Auto) % Immature Gran # (Auto) (0.00-0.02) K/uL Neut # (Auto) (1.4-6.5) K/uL Lymph # (Auto) (1.2-3.4) K/uL [place] # (Auto) (0.11-0.59) K/uL Eos # (Auto) (0-0.5) K/uL Baso # (Auto) (0-0.2) K/uL VBG pH (7.36-7.41) VBG pCO2 (38-50) mmHg VBG pO2 mmHg VBG HCO3 mmol/L VBG O2 Saturation % VBG Base Excess mEq/L Barometric Pressure mm/Hg Sodium (136-145) mmol/L Potassium (3.5-5.1) mmol/L Chloride (98-107) mmol/L Carbon Dioxide (21-32) mmol/L Anion Gap (3-11) BUN (7-18) mg/dl Creatinine (0.6-1.2) mg/dl Est Cr Clr Drug Dosing ml/min Est GFR ( Amer) Est GFR (Non-Af Amer) BUN/Creatinine Ratio (10-20) Glucose (70-99) mg/dl Lactate (0.4-2.0) mmol/L Calcium (8.5-10.1) mg/dl Magnesium (1.8-2.4) mg/dl Total Bilirubin (0.2-1) mg/dl Direct Bilirubin (0-0.2) mg/dl AST (15-37) U/L ALT (12-78) U/L Alkaline Phosphatase (45-117) U/L Total Creatine Kinase (26-192) U/L Troponin I (0-0.045) ng/ml Total Protein (6.4-8.2) gm/dl Albumin (3.4-5.0) gm/dl Lyme Disease IgG Ab (Negative) Lyme Disease IgM Ab (Negative) Influenza Type A (PCR) Neg for Influ A (Neg) Influenza Type B (PCR) Neg for Influ B (Neg) Administered Medications Albuterol (Duoneb) 3 ml NEB QIDR [place] Stop: 11/21/18 11:59 Last Admin: 10/23/18 07:20 Dose: 3 ml Documented by: [id number] Admin: 10/22/18 18:57 Dose: 3 ml Documented by: [id number] Admin: 10/22/18 15:11 Dose: 3 ml Documented by: [id number] Admin: 10/22/18 11:30 Dose: 3 ml Documented by: [id number] Benzonatate (Tessalon Perle) 100 mg PO Q8H PRN PRN Reason: Cough Stop: 11/21/18 10:08 Last Admin: 10/23/18 02:40 Dose: 100 mg Documented by: [id number] Admin: 10/22/18 11:22 Dose: 100 mg Documented by: [id number] Doxycycline Hyclate (Vibramycin) 100 mg PO BID [facility] Stop: 10/29/18 10:08 Last Admin: 10/22/18 20:57 Dose: 100 mg Documented by: [id number] Admin: 10/22/18 13:11 Dose: 100 mg Documented by: [id number] Estradiol (Estrace) 0.5 mg PO Q2D@0900 [facility] Stop: 11/21/18 08:59 Last Admin: 10/22/18 12:02 Dose: 0.5 mg Documented by: [id number] Guaifenesin (Mucinex) 1,200 mg PO Q12 [facility] Stop: 11/21/18 10:08 Last Admin: 10/22/18 20:57 Dose: 1,200 mg Documented by: [id number] Admin: 10/22/18 11:22 Dose: 1,200 mg Documented by: [id number] Hydrochlorothiazide (Hctz) 12.5 mg PO QAM [facility] Stop: 11/21/18 10:08 Last Admin: 10/22/18 12:02 Dose: Not Given Documented by: [id number] Ampicillin Sodium/Sulbactam Sodium 3,000 mg/ Sodium Chloride 108 mls @ 200 mls/hr IV Q6H [facility]; Protocol Stop: 10/29/18 13:59 Last Infusion: 10/23/18 02:15 Dose: 0 mls/hr Documented by: [id number] Admin: 10/23/18 01:40 Dose: 200 mls/hr Documented by: [id number] Infusion: 10/22/18 20:54 Dose: 0 mls/hr Documented by: [id number] Admin: 10/22/18 20:09 Dose: 200 mls/hr Documented by: [id number] Infusion: 10/22/18 15:23 Dose: 0 mls/hr Documented by: [id number] Admin: 10/22/18 14:19 Dose: 200 mls/hr Documented by: [id number] Ketorolac Tromethamine (Toradol) 15 mg IV Q6H PRN PRN Reason: Pain Stop: 10/27/18 10:08 Last Admin: 10/23/18 01:40 Dose: 15 mg Documented by: [id number] Lactobacillus Acidophilus (Floranex) 4 tab PO [facility] [place] Stop: 11/21/18 11:59 Last Admin: 10/22/18 17:35 Dose: 4 tab Documented by: [id number] Admin: 10/22/18 12:01 Dose: 4 tab Documented by: [id number] [facility]) [facility] Stop: 11/21/18 10:08 Last Admin: 10/22/18 12:01 Dose: 20 mg Documented by: [id number] Potassium Chloride (Klor-Con M10) 20 meq PO BID [facility] Stop: 11/21/18 20:59 Last Admin: 10/22/18 20:57 Dose: 20 meq Documented by: [id number] Prednisone (Prednisone) [address] [facility] Stop: 11/21/18 10:08 Last Admin: 10/22/18 12:02 Dose: 60 mg Documented by: [id number] Tramadol HCl (Ultram) [address] [facility] Stop: 11/21/18 10:08 Last Admin: 10/22/18 11:22 Dose: 50 mg Documented by: [id number] Discontinued Medications Albuterol (Duoneb) 3 ml NEB NOW STA Stop: 10/22/18 05:46 Last Admin: 10/22/18 05:54 Dose: 3 ml Documented by: [id number] Albuterol (Ventolin 0.083% 2.5mg/3ml) 2.5 mg NEB NOW STA Stop: 10/22/18 07:12 Last Admin: 10/22/18 07:56 Dose: 2.5 mg Documented by: [id number] Fentanyl Citrate (Fentanyl Citrate) 50 mcg IV NOW STA Stop: 10/22/18 05:46 Last Admin: 10/22/18 06:00 Dose: 50 mcg Documented by: [id number] Hydrocodone Bit/Homatropine Methylb (Hycodan) 5 ml PO NOW STA Stop: 10/22/18 05:46 Last Admin: 10/22/18 06:00 Dose: 5 ml Documented by: [id number] Piperacillin Sod/Tazobactam Sod (Zosyn) 4.5 gm in 120 mls @ 240 mls/hr IV NOW ONE Stop: 10/22/18 07:40 Last Infusion: 10/22/18 08:20 Dose: 0 mls/hr Documented by: [id number] Admin: 10/22/18 07:36 Dose: 240 mls/hr Documented by: [id number] Levofloxacin/Dextrose (Levaquin/D5w) 750 mg in 150 mls @ 100 mls/hr IV NOW STA Stop: 10/22/18 08:40 Last Infusion: 10/22/18 10:10 Dose: 0 mls/hr Documented by: [id number] Admin: 10/22/18 08:30 Dose: 100 mls/hr Documented by: [id number] Ioversol (Optiray 320 125ml) 85 ml IV ONCE PRN PRN Reason: Interaction Checking Stop: 10/26/18 06:55 Last Admin: 10/22/18 06:57 Dose: 85 ml Documented by: [id number] Potassium Chloride (Noemi Ciel Elix) 40 meq PO NOW STA Stop: 10/22/18 07:12 Last Admin: 10/22/18 07:47 Dose: 40 meq Documented by: [id number] Discharge Plan Visit Data *Final* Discharge Date/Time: 10/22/18 09:41 Chief Complaint: Cough Stated Complaint: COUGH, PAIN UNDER BREAST INTO BACK ED Provider: Solomon Porter Discharge Problem: Right middle lobe pneumonia Patient Disposition: Admitted As Inpatient Discharge Instructions Interventions: ED Discharge Assessment Last Done: 10/22/18 09:41 Discharge Problem: Right middle lobe pneumonia Qualifiers: Pneumonia type: due to unspecified organism Qualified Code(s): J18.1 - Lobar pneumonia, unspecified organism
[2018-10-22 06:02] LABS: Basophils # (auto) 0.03 K/uL (0-0.2); Basophils % (auto) 0.2 %; Eosinophils # (auto) 0.03 K/uL (0-0.5); Eosinophils % (auto) 0.2 %; Hematocrit (blood only) 39.1 % (37-47); Immature Granulocytes # (auto) 0.04 K/uL (0.00-0.02); Immature Granulocytes % (auto) 0.3 %; Lymphocytes # (auto) 1.36 K/uL (1.2-3.4); Lymphocytes % (auto) 8.8 %; Mean Corpuscular Hgb Conc 33.2 g/dL (32-36); Mean Corpuscular Volume 84.8 fL (80-100); Mean Platelet Volume 10.9 fL (7.4-10.4); Monocytes # (auto) 1.39 K/uL (0.11-0.59); Neutrophils # (auto) 12.67 K/uL (1.4-6.5); Neutrophils % (auto) 81.5 %; Platelet Count 221 K/uL (130-400); RDW Standard Deviation 46.4 fL (36.4-46.3); Red Blood Count 4.61 M/uL (4.2-5.4); White Blood Count 15.52 K/uL (4.8-10.8)
--- NOTE | 2018-10-22 06:12 | XRay Report ---
XR chest 1V portable CLINICAL HISTORY: cough, right chest pain dyspnea COMPARISON STUDY: October 16, 2015 FINDINGS: Right upper lobe infiltrate. Lungs otherwise appear clear. Diaphragms are smooth. No signif icant cardiac enlargement. IMPRESSION: Right upper lobe infiltrate The above report was generated using voice recognition software. It may contain grammatical, syntax or spelling errors. Electronically signed by: Froylan Calix M.D. 10/22/2018 6:11 AM
[2018-10-22 06:22] LABS: Alanine Aminotransferase 12 U/L (12-78); Albumin Level 3.3 gm/dl (3.4-5.0); Aspartate Aminotransferase 10 U/L (15-37); Bilirubin Direct 0.2 mg/dl (0-0.2); Blood Urea Nitrogen 14 mg/dl (7-18); Calcium 8.7 mg/dl (8.5-10.1); Carbon Dioxide 25 mmol/L (21-32); Chloride 106 mmol/L (98-107); Creatinine Clr Calc Pharmacy 45.4 ml/min; Est GFR (African American) 62.2; Est GFR (Non-African American) 53.7; Glucose 118 mg/dl (70-99); Potassium 3.3 mmol/L (3.5-5.1); Sodium 139 mmol/L (136-145)
[2018-10-22 06:27] LABS: Alkaline Phosphatase 119 U/L (45-117); Bilirubin,Total 0.8 mg/dl (0.2-1); Total Protein 7.4 gm/dl (6.4-8.2); Troponin I < 0.015 ng/ml (0-0.045)
[2018-10-22 06:55] LABS: Oxygen Saturation VBG 82.8 %; pH VBG 7.44 (7.36-7.41)
[2018-10-22] MEDS ORDERED: OPTIRAY 320 125ml IV PRN (06:56)
[2018-10-22 06:57] LABS: Lyme Ab IgG w/WB Rflx Negative (Negative); Lyme Ab IgM w/WB Rflx Negative (Negative)
--- NOTE | 2018-10-22 07:04 | CT Scan Report ---
CT angio chest PE protocol CT DOSE: 232.78 mGy.cm HISTORY: HISTORY: Of PE TECHNIQUE: Multiaxial CT images of the chest were performed following the intravenous administration of contrast to evaluate the pulmonary arteries. Maximal intensity projection images were also obtaine d. A dose lowering technique was utilized adhering to the principles of ALARA. COMPARISON STUDY: None. FINDINGS: Mild atherosclerotic change thoracic aorta. Pulmonary vasculature enhances appropriately. There are no filling defects in the pulmonary arterial vasculature. There is a peripheral consolidative infiltrate medial right upper lobe. Small parenchymal infiltrate left lower lobe. The lungs otherwise appear clear. There are several small hepatic cysts. IMPRESSION: 1. No evidence for pulmonary embolus. 2. Consolidated parenchymal infiltrate peripheral aspect right upper lobe with minimal changes left l ower lobe. The above report was generated using voice recognition software. It may contain grammatical, syntax or spelling errors. Electronically signed by: Froylan Calix M.D. 10/22/2018 7:02 AM
[2018-10-22] MEDS ORDERED: LEVOFLOXACIN/D5W 750 MG/150 ML BAG IV STA (07:11)
[2018-10-22] MEDS ORDERED: POTASSIUM CHLORIDE 20 MEQ/15 ML UDC PO STA (07:11)
[2018-10-22] MEDS ORDERED: PIPERACILLIN/TAZOBACTAM 4.5 GM/120 ML BAG IV ONE (07:11)
[2018-10-22] MEDS ORDERED: PIPERACILL/TAZOBAC CONSULT ACTIVE PRN (07:11)
[2018-10-22] MEDS ORDERED: ALBUTEROL 0.083% NEBU SOLN 3 ML VIAL NEB STA (07:11)
--- NOTE | 2018-10-22 07:17 | Emergency Department Note ---
ED Visit Note Received patient at change of shift. History and physical verified by me. On my reexamination of the patient patient has multiple lobe pneumonia on her CAT scan of her chest. She feels she is too weak to go home and is requesting to be admitted. Blood cultures were obtained and the patient was started on antibiotics including Zosyn as well as Levaquin. Because of the tick exposure anaplasmosis and ehrlichia were added. Her potassium was repleted. .
--- NOTE | 2018-10-22 07:29 | History & Physical Report ---
Date of Service October 22, 2018 Assessment & Plan (1) Community acquired bacterial pneumonia: RUL, LLL. No risk factors for gram negative etiology. No dysphagia or aspiration history. Will Rx for CAP. Numerous allergies. Rx with unasyn q6h and doxy for atypical coverage. Follow blood cultures. H/o pulmonary nodules so will recommend repeat CT in 6-8 weeks to ensure radiographic resolution of pneumonia. Treat asthma exacerbation. Present on Admission?: Yes (2) Asthma with exacerbation: Prednisone 60mg po daily. Duonebs q6h. Incentive spirometry. Mucinex q12h. Present on Admission?: Yes (3) Hypokalemia: Replace, repeat BMP am. Check mag level am. Likely due to HCTZ use. Present on Admission?: Yes (4) GERD without esophagitis: Does not take any meds regularly for this. EGD 07/2018 was completely normal. Present on Admission?: No (5) Vitamin B12 deficiency: B12 level <300 several months ago. Repeat level in am. Doesn't appear she has been taking replacement. Present on Admission?: Yes (6) Myalgia: Could be due to pneumonia. Check flu PCR to be complete. Low K could contribute. Check mag, B12, and CPK as well. Tick-borne disease w/u in progress. Present on Admission?: Yes (7) Essential (primary) hypertension: Continue HCTZ. Continue NIKI. Present on Admission?: Yes (8) Tick bite: Lyme's testing negative. Ehrlichia and anaplasmosis tests sent. Doxycycline for CAP will cover tick-borne disease, if present. Present on Admission?: Yes (9) Chest pain: Musculoskeletal. Pain is reproducible on exam. Some of it could be pleuritic from her pneumonia as well. Tylenol prn. Toradol prn. K pad heat. Treat asthma and CAP. Tessalon for cough suppression. Pain not c/w ischemic heart pain. Troponin negative. EKG - my reading - NSR, no ST changes. 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 She was at the [place] near [place] days ago and had dyspnea on exertion while walking through the park. She also felt dizzy & lightheaded during that trip. Her appetite has been poor for about 5 days. She has attempted to take her proair with some relief of chest symptoms. She has noted 2 tick bites in the last 1-2 weeks. Additionally she has had body-wide myalgias, arthralgias, subjective fevers, chills/sweats, and headaches. The headaches were earlier this week - now resolved. She lives independently in [place]. She has not been hospitalized over the previous 90 days. She reports no recent weight loss and prior to this illness had been feeling well. In fact she still works part-time and rides a four-garcia for recreation. No dysphagia. Allergies Allergy/AdvReac Type Severity Reaction Status Date / Time cefuroxime Allergy Severe ITCHING, Verified 10/22/18 05:56 REDNESS, SOB tuberculin, purified protein Allergy Severe swelling Verified 10/22/18 05:56 deriva at injection site Cipro Allergy Intermediate ITCHING Verified 06/02/17 10:25 ciprofloxacin Allergy Intermediate ITCHING Verified 10/22/18 05:56 clarithromycin Allergy Intermediate ITCHING, Verified 10/22/18 05:56 SOB moxifloxacin Allergy Intermediate itching Verified 10/22/18 05:56 Sulfa (Sulfonamide Allergy Intermediate ITCHING Verified 10/22/18 05:56 Antibiotics) escitalopram [From Lexapro] Allergy Unknown TIGHTNESS Verified 10/22/18 05:56 IN CHEST,SOB losartan Allergy Unknown MUSCLE Verified 10/22/18 05:56 CRAMPS mivacurium Allergy Unknown UNKNOWN Verified 10/22/18 05:56 enalapril AdvReac Intermediate cough Verified 07/08/18 07:36 nifedipine AdvReac Intermediate Irritabilit Verified 07/08/18 07:36 y clonidine AdvReac Mild Drowsiness Verified 07/08/18 07:36 Home Medications Home Medications Medication Instructions Recorded Confirmed Type epinephrine 0.3 mg/0.3 mL 0.3 mg IM Q10M PRN 02/07/18 10/22/18 History injection, auto-injector estradiol 0.5 mg tablet 0.5 mg PO Q2D 02/07/18 10/22/18 History lisinopril 10 mg tablet 20 mg PO QAM 02/07/18 10/22/18 History lorazepam 0.5 mg tablet 0.5 mg PO HS PRN tab 02/07/18 10/22/18 History tramadol 50 mg tablet 50 mg PO QAM tab 02/07/18 10/22/18 History albuterol sulfate [ProAir HFA] 2 puff INHALATION Q6H PRN 06/22/18 10/22/18 History hydrochlorothiazide 12.5 mg tablet 12.5 mg PO DIRECTED #30 tab 10/14/18 History ipratropium-albuterol [Combivent 1 puff INHALATION DIRECTED PRN 10/22/18 10/22/18 History Respimat] Past Med/Surg History Medical History History of insomnia (Resolved) Anxiety (Acute) Depression (Acute) Dyslipidemia (Acute) GERD without esophagitis (Acute) Intraductal papillary mucinous neoplasm (Acute) Intrinsic asthma (Acute) Lumbar disc disease (Acute) Microalbuminuria (Acute) Osteopenia (Acute) Prediabetes (Acute) Solitary pulmonary nodule (Acute) Vitamin B12 deficiency (Acute) Vitamin D deficiency (Acute) Depressive disorder Hypertension Hypercholesterolemia GERD (gastroesophageal reflux disease) Anxiety disorder Asthma Osteoarthritis Cardiac murmur HX Chronic obstructive pulmonary disease Diverticular disease Hiatal hernia Temporomandibular joint disorder CLICKS ON OCC RIGHT SIDE HAS NEVER LOCKED Surgical History History of tonsillectomy and adenoidectomy History of hysterectomy TOTAL BSO H/O right knee surgery H/O exploratory laparotomy ADHESIONS REMOVAL H/O hemorrhoidectomy H/O vein stripping BILAT LEGS History of anesthesia reaction WOKE UP DURING PROCEDURES AND HAD TO GET MORE MEDICINE TO SLEEP History of cataract surgery R/L History of dilatation and curettage History of esophagogastroduodenoscopy (EGD) WITH DILITATION History of repair of rotator cuff RIGHT Family History Grandfather (Paternal) Family history of diabetes mellitus Grandfather (Maternal) Family history of diabetes mellitus Tuberculosis Grandmother (Maternal) Family history of diabetes mellitus Family/Other Family hx of colon cancer Mother , age 72 Lung cancer Sister , age 66 Lung cancer Father , age 56 Endocarditis Social History Preferred Language: Belgian Communication Ability: Effective Visual Impairment: No Limitations Beliefs That Will Affect Care: None marital status: Current Living Situation: Significant Other Current Living Situation Comment: lives alone in [facility]; 4 adult children current occupational status: employed current occupation: [employer] Part-time Feels Safe at Home: Yes Smoking Status: Never smoker Second Hand Exposure: Yes (AT WORK) Hx Alcohol Use: No Hx Substance Use: No Review of Systems Constitutional: + fever, + chills, + sweats, + body aches, + fatigue, + weakness and + anorexia; no weight loss and no weight gain Eyes: no worsening vision Ear, Nose, Mouth, Throat: no nasal congestion, no sore throat and no dysphagia Respiratory: + cough, + dyspnea on exertion, + pain on inspiration and + wheezing; no hemoptysis and no sputum production Cardiovascular: as per Subjective / HPI and + edema (occasional); no orthopnea and no paroxysmal nocturnal dyspnea Gastrointestinal: no abdominal pain, no nausea, no vomiting, no constipation and no diarrhea/loose stools Genitourinary: no dysuria Musculoskeletal: + joint pain and + myalgia Integumentary: no rash tick bites Neurologic: + generalized weakness; no localized weakness and no numbness Psychiatric: + anxiety Endocrine: no polydipsia and no polyphagia Hematologic / Lymphatic: no easy bleeding, no easy bruising and no lymphadenopathy Allergy / Immunological: no seasonal rhinorrhea Physical Exam Constitutional: well developed, well nourished and average body habitus; no acute distress, not ill appearing and no altered mental status Eyes: PERRL ENMT: external ear and nose normal, oropharynx normal Neck: trachea midline, no thyromegaly Respiratory: no labored breathing and no retractions Auscultation: + rales (minimal - left base, RUL); no wheezes Cardiovascular: RRR, no murmur, no edema Heart Sounds: normal S1 and normal S2 Vessels: posterior tibial pulses present and dorsalis pedis pulses present; no JVD Chest (Breasts): Additional Comments: reproducible chest wall tenderness right flank/right lower costal margin Gastrointestinal (Abdomen): normal bowel sounds, soft, nontender, no hepatosplenomegaly Musculoskeletal: no cyanosis or clubbing, extremities motor strength 5/5 Skin: no rashes, warm and dry insect or tick bite - left upper chest, left medial capone Neurologic: deep tendon reflexes 2+ bilaterally; no focal motor deficits Psychiatric: A+Ox3, euthymic affect Lymphatic: no cervical lymphadenopathy Results & Data Vital Signs (Past 12 Hours) Vital Signs Temp Pulse Pulse Resp BP BP Pulse Ox 10/22/18 07:00 100 H 16 170/84 H 98 10/22/18 05:56 97 H 16 96 10/22/18 05:29 37.1 C 108 H 20 155/106 H 97 Laboratory Results Laboratory Results - last 24 hr 10/22/18 10/22/18 10/22/18 05:56 05:56 05:56 WBC 15.52 H RBC 4.61 Hgb 13.0 Hct 39.1 MCV 84.8 MCH 28.2 MCHC 33.2 RDW Std Deviation 46.4 H RDW Coeff of Nurys 15.0 H Plt Count 221 MPV 10.9 H Immature Gran % (Auto) 0.3 Neut % (Auto) 81.5 Lymph % (Auto) 8.8 [place] % (Auto) 9.0 Eos % (Auto) 0.2 Baso % (Auto) 0.2 Immature Gran # (Auto) 0.04 H Neut # (Auto) 12.67 H Lymph # (Auto) 1.36 [place] # (Auto) 1.39 H Eos # (Auto) 0.03 Baso # (Auto) 0.03 VBG pH VBG pCO2 VBG pO2 VBG HCO3 VBG O2 Saturation VBG Base Excess Barometric Pressure Sodium 139 Potassium 3.3 L Chloride 106 Carbon Dioxide 25 Anion Gap 8.0 BUN 14 Creatinine 1.01 Est Cr Clr Drug Dosing 45.4 Est GFR ( Amer) 62.2 Est GFR (Non-Af Amer) 53.7 BUN/Creatinine Ratio 14.0 Glucose 118 H Lactate Calcium 8.7 Magnesium Total Bilirubin 0.8 Direct Bilirubin 0.2 AST 10 L ALT 12 Alkaline Phosphatase 119 H Total Creatine Kinase Troponin I < 0.015 Total Protein 7.4 Albumin 3.3 L A. phagocytophilum IgG A. phagocytophilum IgM A. phagocytophilum DNA A.phagocytophilum Intrp A. phagocytophilum Cmmt Lyme Disease IgG Ab Negative Lyme Disease IgM Ab Negative E. chaffeensis IgG Ab E. chaffeensis IgM Ab E. chaffeensis Interp E. chaffeensis Comment Influenza Type A (PCR) Influenza Type B (PCR) 10/22/18 10/22/18 10/22/18 05:56 06:42 06:42 WBC RBC Hgb Hct MCV MCH MCHC RDW Std Deviation RDW Coeff of Nurys Plt Count MPV Immature Gran % (Auto) Neut % (Auto) Lymph % (Auto) [place] % (Auto) Eos % (Auto) Baso % (Auto) Immature Gran # (Auto) Neut # (Auto) Lymph # (Auto) [place] # (Auto) Eos # (Auto) Baso # (Auto) VBG pH 7.44 H VBG pCO2 34 L VBG pO2 46 VBG HCO3 23 VBG O2 Saturation 82.8 VBG Base Excess -1.0 Barometric Pressure 735.6 Sodium Potassium Chloride Carbon Dioxide Anion Gap BUN Creatinine Est Cr Clr Drug Dosing Est GFR ( Amer) Est GFR (Non-Af Amer) BUN/Creatinine Ratio Glucose Lactate 1.3 Calcium Magnesium Pending Total Bilirubin Direct Bilirubin AST ALT Alkaline Phosphatase Total Creatine Kinase Pending Troponin I Total Protein Albumin A. phagocytophilum IgG A. phagocytophilum IgM A. phagocytophilum DNA A.phagocytophilum Intrp A. phagocytophilum Cmmt Lyme Disease IgG Ab Lyme Disease IgM Ab E. chaffeensis IgG Ab E. chaffeensis IgM Ab E. chaffeensis Interp E. chaffeensis Comment Influenza Type A (PCR) Influenza Type B (PCR) 10/22/18 10/22/18 08:20 08:26 WBC RBC Hgb Hct MCV MCH MCHC RDW Std Deviation RDW Coeff of Nurys Plt Count MPV Immature Gran % (Auto) Neut % (Auto) Lymph % (Auto) [place] % (Auto) Eos % (Auto) Baso % (Auto) Immature Gran # (Auto) Neut # (Auto) Lymph # (Auto) [place] # (Auto) Eos # (Auto) Baso # (Auto) VBG pH VBG pCO2 VBG pO2 VBG HCO3 VBG O2 Saturation VBG Base Excess Barometric Pressure Sodium Potassium Chloride Carbon Dioxide Anion Gap BUN Creatinine Est Cr Clr Drug Dosing Est GFR ( Amer) Est GFR (Non-Af Amer) BUN/Creatinine Ratio Glucose Lactate Calcium Magnesium Total Bilirubin Direct Bilirubin AST ALT Alkaline Phosphatase Total Creatine Kinase Troponin I Total Protein Albumin A. phagocytophilum IgG Pending A. phagocytophilum IgM Pending A. phagocytophilum DNA Pending A.phagocytophilum Intrp Pending A. phagocytophilum Cmmt Pending Lyme Disease IgG Ab Lyme Disease IgM Ab E. chaffeensis IgG Ab Pending E. chaffeensis IgM Ab Pending E. chaffeensis Interp Pending E. chaffeensis Comment Pending Influenza Type A (PCR) Pending Influenza Type B (PCR) Pending Diagnostic Findings 1. CXR - RUL infiltrate. 2. CTA chest - IMPRESSION: 1. No evidence for pulmonary embolus. 2. Consolidated parenchymal infiltrate peripheral aspect right upper lobe with minimal changes left lower lobe. Code Status & VTE Plan Code Status full code VTE Prophylaxis Plan VTE Prophylaxis will be ordered: Yes (1) Asthma with exacerbation Asthma persistence: intermittent Asthma severity: mild Qualified Code(s): J45.21 - Mild intermittent asthma with (acute) exacerbation (2) Tick bite Encounter type: initial encounter Qualified Code(s): W57.XXXA - Bitten or stung by nonvenomous insect and other nonvenomous arthropods, initial encounter (3) Chest pain Chest pain type: unspecified Qualified Code(s): R07.9 - Chest pain, unspecified
[2018-10-22 08:43] LABS: Magnesium 2.1 mg/dl (1.8-2.4)
[2018-10-22 09:03] LABS: Influenza A virus by PCR Neg for Influ A (Neg); Influenza B virus by PCR Neg for Influ B (Neg)
[2018-10-22] MEDS ORDERED: ACETAMINOPHEN 325 MG TAB PO PRN (10:09)
[2018-10-22] MEDS ORDERED: ONDANSETRON INJ 2 MG/ML 2 ML VIAL IV PRN (10:09)
[2018-10-22] MEDS ORDERED: LORazepam 0.5 MG TAB PO PRN (10:09)
[2018-10-22] MEDS ORDERED: KETOROLAC TROMETHAMINE 15 MG/ML VIAL IV PRN (10:09)
[2018-10-22] MEDS ORDERED: EPINEPHRINE ADULT AUTO-INJECT 0.3 MG SYR IM PRN (10:09)
[2018-10-22] MEDS: BENZONATATE 100 MG CAPSULE PO PRN (11:22)
[2018-10-22] MEDS: TRAMADOL HCL 50 MG TABLET PO SCH (11:22)
[2018-10-22] MEDS: guaiFENesin 600 MG TABCR PO SCH ×2 (11:22→20:57)
[2018-10-22] MEDS: ALBUT/IPRATROP 3MG/0.5MG NEB 3 ML VIAL NEB SCH ×3 (11:30→18:57)
[2018-10-22] MEDS: LACTOBACILLUS ACIDOPHILUS (FLORANEX) TAB PO SCH ×2 (12:01→17:35)
[2018-10-22] MEDS: LISINOPRIL 10 MG TAB PO SCH (12:01)
[2018-10-22] MEDS: hydroCHLOROthiazide 25 MG TAB PO SCH (12:02)
[2018-10-22] MEDS: predniSONE 20 MG TAB PO SCH (12:02)
[2018-10-22] MEDS: ESTRADIOL 1 MG TAB PO SCH (12:02)
[2018-10-22] MEDS: DOXYCYCLINE HYCLATE 100 MG CAP PO SCH ×2 (13:11→20:57)
[2018-10-22] MEDS: AMPICILLIN/SULBACTAM SOD 3,000 MG in 0.9 % SODIUM CHLORIDE 100 ML IV SCH ×2 (14:19→20:09)
[2018-10-22] MEDS: POTASSIUM CHLORIDE 10 MEQ TABCR PO SCH (20:57)
[2018-10-23] MEDS: AMPICILLIN/SULBACTAM SOD 3,000 MG in 0.9 % SODIUM CHLORIDE 100 ML IV SCH ×4 (01:40→20:03)
[2018-10-23] MEDS: BENZONATATE 100 MG CAPSULE PO PRN ×2 (02:40→22:52)
[2018-10-23] MEDS: ALBUT/IPRATROP 3MG/0.5MG NEB 3 ML VIAL NEB SCH ×3 (07:20→14:41)
[2018-10-23] MEDS: TRAMADOL HCL 50 MG TABLET PO SCH (07:37)
[2018-10-23] MEDS: DOXYCYCLINE HYCLATE 100 MG CAP PO SCH ×2 (07:38→20:52)
[2018-10-23] MEDS: LISINOPRIL 10 MG TAB PO SCH (07:38)
[2018-10-23] MEDS: POTASSIUM CHLORIDE 10 MEQ TABCR PO SCH ×2 (07:38→20:52)
[2018-10-23] MEDS: LACTOBACILLUS ACIDOPHILUS (FLORANEX) TAB PO SCH ×3 (07:39→17:13)
[2018-10-23] MEDS: guaiFENesin 600 MG TABCR PO SCH ×2 (07:40→20:51)
[2018-10-23] MEDS: hydroCHLOROthiazide 25 MG TAB PO SCH (07:40)
[2018-10-23] MEDS: predniSONE 20 MG TAB PO SCH (07:41)
[2018-10-23 07:49] LABS: Hematocrit (blood only) 35.9 % (37-47); Hemoglobin 12.2 g/dL (12.0-16.0); Mean Corpuscular Volume 83.5 fL (80-100); Mean Platelet Volume 11.3 fL (7.4-10.4); Platelet Count 251 K/uL (130-400); RDW Coefficient of Variation 15.2 % (11.5-14.5); RDW Standard Deviation 46.4 fL (36.4-46.3); White Blood Count 20.42 K/uL (4.8-10.8)
[2018-10-23 07:58] LABS: Prothrombin Time 10.1 Seconds (9.0-12.0)
[2018-10-23 08:26] LABS: BUN Creatinine Ratio 18.6 (10-20); Calcium 9.5 mg/dl (8.5-10.1); Creatinine Clr Calc Pharmacy 41.7 ml/min; Est GFR (African American) 56.1; Est GFR (Non-African American) 48.4; Potassium 4.1 mmol/L (3.5-5.1)
[2018-10-23] MEDS: HEPARIN SOD 5,000 UNIT/0.5 ML VIAL SQ SCH ×2 (09:39→20:50)
[2018-10-23] MEDS: IPRATROPIUM BROMIDE/ALBUTEROL respimat INH INH SCH ×2 (17:12→20:47)
[2018-10-23] MEDS: SENNA 8.6 MG TAB PO SCH (17:12)
--- NOTE | 2018-10-23 20:48 | Hospitalist Progress Note ---
Date of Service October 23, 2018 Assessment & Plan (1) Community acquired bacterial pneumonia: RUL, LLL. IMPROVING. Blood cx's negative. Day #2 each of doxy and unasyn. Doxy will also cover tick-borne infections (see below). H/o pulmonary nodules so will recommend repeat CT in 6-8 weeks to ensure radiographic resolution of pneumonia. Treat asthma exacerbation. Can likely transition to PO abx tomorrow. (2) Asthma with exacerbation: IMPROVED. Minimal wheeze today. Wean Prednisone to 40mg po daily. Change Duonebs to combivent q6h. Incentive spirometry. Mucinex q12h. (3) Hypokalemia: Resolved. (4) GERD without esophagitis: Does not take any meds regularly for this. EGD 07/2018 was completely normal. (5) Vitamin B12 deficiency: B12 level <300 several months ago. Now resolved. (6) Myalgia: Likely due to pneumonia. Resolving. Flu PCR negative. Lyme's negative. Mag, B12, and CPK all normal. Tick-borne disease w/u in progress (anaplasmosis, ehrlichia). On doxy for latter. (7) Essential (primary) hypertension: Continue HCTZ. Continue NIKI. Controlled. (8) Tick bite: Lyme's testing negative. Ehrlichia and anaplasmosis tests sent. Doxycycline for CAP will cover tick-borne disease, if present. (9) Chest pain: Musculoskeletal in nature. Pain is reproducible on exam. Some of it could be pleuritic from her pneumonia as well. Tylenol prn. Toradol prn. K pad heat. Tessalon for cough suppression. Pain not c/w ischemic heart pain. Troponin negative. EKG was w/o ischemic changes. (10) DVT prophylaxis: heparin 5000 BID patient requested additional night in hospital d/c home on Wednesday Subjective fatigue, myalgias, anorexia all improved or resolved. cough lingering but improved with nebs/steroids. no STANLEY O2 sats with walking 95% eating well still with mild chest wall pain from coughing Review of Systems Constitutional: no fever and no chills Respiratory: + cough and + wheezing; no sputum production Cardiovascular: as per Subjective / HPI and + chest pain (with coughing); no dyspnea on exertion, no orthopnea, no paroxysmal nocturnal dyspnea and no edema Gastrointestinal: no abdominal pain, no nausea and no vomiting Physical Exam Constitutional: WD/WN, vitals as above average body habitus; no acute distress ENMT: external ear and nose normal, oropharynx normal Respiratory: Auscultation: + rales (minimal - bases) and + wheezes (minimal end-exp) Cardiovascular: Rate/Rhythm: regular rate and regular rhythm Heart Sounds: normal S1 and normal S2 Vessels: posterior tibial pulses present and dorsalis pedis pulses present; no JVD Gastrointestinal (Abdomen): normal bowel sounds, soft, nontender, no hepatosplenomegaly Psychiatric: A+Ox3, euthymic affect Results & Data Vital Signs (Past 12 Hours) Vital Signs Temp Pulse Resp BP Pulse Ox 10/23/18 15:03 36.4 C L 105 H 16 121/65 94 10/23/18 14:41 101 H 18 97 10/23/18 11:31 99 H 16 98 10/23/18 11:00 104 H 20 97 Laboratory Results Laboratory Results - last 24 hr 10/23/18 10/23/18 10/23/18 07:21 07:21 07:21 WBC 20.42 H RBC 4.30 Hgb 12.2 Hct 35.9 L MCV 83.5 MCH 28.4 MCHC 34.0 RDW Std Deviation 46.4 H RDW Coeff of Nurys 15.2 H Plt Count 251 MPV 11.3 H PT 10.1 INR 1.0 Sodium 141 Potassium 4.1 D Chloride 111 H Carbon Dioxide 22 Anion Gap 9.0 BUN 21 H Creatinine 1.10 Est Cr Clr Drug Dosing 41.7 Est GFR ( Amer) 56.1 Est GFR (Non-Af Amer) 48.4 BUN/Creatinine Ratio 18.6 Glucose 150 H Calcium 9.5 Vitamin B12 10/23/18 07:21 WBC RBC Hgb Hct MCV MCH MCHC RDW Std Deviation RDW Coeff of Nurys Plt Count MPV PT INR Sodium Potassium Chloride Carbon Dioxide Anion Gap BUN Creatinine Est Cr Clr Drug Dosing Est GFR ( Amer) Est GFR (Non-Af Amer) BUN/Creatinine Ratio Glucose Calcium Vitamin B12 854 (1) Asthma with exacerbation Asthma severity: mild Asthma persistence: intermittent Qualified Code(s): J45.21 - Mild intermittent asthma with (acute) exacerbation (2) Tick bite Encounter type: initial encounter Qualified Code(s): W57.XXXA - Bitten or stung by nonvenomous insect and other nonvenomous arthropods, initial encounter (3) Chest pain Chest pain type: unspecified Qualified Code(s): R07.9 - Chest pain, unspecified
[2018-10-24] MEDS: AMPICILLIN/SULBACTAM SOD 3,000 MG in 0.9 % SODIUM CHLORIDE 100 ML IV SCH ×2 (01:40→08:59)
[2018-10-24 06:23] LABS: Hematocrit (blood only) 33.1 % (37-47); Mean Corpuscular Hgb Conc 33.2 g/dL (32-36); Mean Platelet Volume 11.1 fL (7.4-10.4); Platelet Count 270 K/uL (130-400); RDW Coefficient of Variation 15.4 % (11.5-14.5); RDW Standard Deviation 47.7 fL (36.4-46.3); Red Blood Count 3.94 M/uL (4.2-5.4); White Blood Count 18.74 K/uL (4.8-10.8)
[2018-10-24 06:46] LABS: BUN Creatinine Ratio 28.7 (10-20); Calcium 9.3 mg/dl (8.5-10.1); Creatinine Clr Calc Pharmacy 36.1 ml/min; Est GFR (African American) 47.1; Est GFR (Non-African American) 40.7; Potassium 4.6 mmol/L (3.5-5.1)
[2018-10-24] MEDS: TRAMADOL HCL 50 MG TABLET PO SCH (08:59)
[2018-10-24] MEDS ORDERED: predniSONE 20 MG TAB PO SCH (09:00)
[2018-10-24] MEDS: SENNA 8.6 MG TAB PO SCH (09:00)
[2018-10-24] MEDS: hydroCHLOROthiazide 25 MG TAB PO SCH (09:00)
[2018-10-24] MEDS: DOXYCYCLINE HYCLATE 100 MG CAP PO SCH (09:01)
[2018-10-24] MEDS: POTASSIUM CHLORIDE 10 MEQ TABCR PO SCH (09:01)
[2018-10-24] MEDS: LISINOPRIL 10 MG TAB PO SCH (09:01)
[2018-10-24] MEDS: ESTRADIOL 1 MG TAB PO SCH (09:01)
[2018-10-24] MEDS: LACTOBACILLUS ACIDOPHILUS (FLORANEX) TAB PO SCH (09:02)
[2018-10-24] MEDS: guaiFENesin 600 MG TABCR PO SCH (09:02)
[2018-10-24] MEDS: IPRATROPIUM BROMIDE/ALBUTEROL respimat INH INH SCH (09:02)
[2018-10-24] MEDS: HEPARIN SOD 5,000 UNIT/0.5 ML VIAL SQ SCH (09:09)
--- NOTE | 2018-10-24 09:52 | Discharge Summary ---
Date of Service October 24, 2018 Admission HPI Per Admitting Provider 78yo female with history of asthma (previously followed by maintenance trainer Dr Bethea), HTN, and prior Lyme's Disease who presents with 1 week of mainly nonproductive cough that worsened 3 days ago. [place] near [facility] several days ago and had dyspnea on exertion while walking through the park. She also felt dizzy & lightheaded during that trip. Her appetite has been poor for about 5 days. She has attempted to take her proair with some relief of chest symptoms. She has noted 2 tick bites in the last 1-2 weeks. Additionally she has had body-wide myalgias, arthralgias, subjective fevers, chills/sweats, and headaches. The headaches were earlier this week - now resolved. She lives independently in [place]. She has not been hospitalized over the previous 90 days. She reports no recent weight loss and prior to this illness had been feeling well. In fact she still works part-time and rides a four-garcia for recreation. No dysphagia. Admission Exam Per Admitting Provider Constitutional: well developed, well nourished and average body habitus; no acute distress, not ill appearing and no altered mental status Eyes: PERRL ENMT: external ear and nose normal, oropharynx normal Neck: trachea midline, no thyromegaly Respiratory: no labored breathing and no retractions Auscultation: + rales (minimal - left base, RUL); no wheezes Cardiovascular: RRR, no murmur, no edema Heart Sounds: normal S1 and normal S2 Vessels: posterior tibial pulses present and dorsalis pedis pulses present; no JVD Chest (Breasts): Additional Comments: reproducible chest wall tenderness right flank/right lower costal margin Gastrointestinal (Abdomen): normal bowel sounds, soft, nontender, no hepatosplenomegaly Musculoskeletal: no cyanosis or clubbing, extremities motor strength 5/5 Skin: no rashes, warm and dry insect or tick bite - left upper chest, left medial capone Neurologic: deep tendon reflexes 2+ bilaterally; no focal motor deficits Psychiatric: A+Ox3, euthymic affect Lymphatic: no cervical lymphadenopathy Principal Diagnosis Community Acquired bacterial pneumonia Discharge Exam Constitutional WD/WN, vitals as above Eyes PERRL, conjunctivae normal, anicteric sclerae ENMT external ear and nose normal, oropharynx normal Neck trachea midline, no thyromegaly Respiratory normal respiratory effort, lungs clear to auscultation Cardiovascular RRR, no murmur, no edema Gastrointestinal (Abdomen) normal bowel sounds, soft, nontender, no hepatosplenomegaly Musculoskeletal no cyanosis or clubbing, extremities motor strength 5/5 Skin no rashes, warm and dry Neurologic patellar DTR's 2+ bilat, sensation intact and PERRL, EOMI, accommodation nl, no face palsy, no dysarthria Psychiatric A+Ox3, euthymic affect Lymphatic no cervical or axillary lymphadenopathy Discharge Data Allergies Allergy/AdvReac Type Severity Reaction Status Date / Time cefuroxime Allergy Severe ITCHING, Verified 10/22/18 05:56 REDNESS, SOB tuberculin, purified protein Allergy Severe swelling Verified 10/22/18 05:56 deriva at injection site Cipro Allergy Intermediate ITCHING Verified 06/02/17 10:25 ciprofloxacin Allergy Intermediate ITCHING Verified 10/22/18 05:56 clarithromycin Allergy Intermediate ITCHING, Verified 10/22/18 05:56 SOB moxifloxacin Allergy Intermediate itching Verified 10/22/18 05:56 Sulfa (Sulfonamide Allergy Intermediate ITCHING Verified 10/22/18 05:56 Antibiotics) escitalopram [From Lexapro] Allergy Unknown TIGHTNESS Verified 10/22/18 05:56 IN CHEST,SOB losartan Allergy Unknown MUSCLE Verified 10/22/18 05:56 CRAMPS mivacurium Allergy Unknown UNKNOWN Verified 10/22/18 05:56 enalapril AdvReac Intermediate cough Verified 07/08/18 07:36 nifedipine AdvReac Intermediate Irritabilit Verified 07/08/18 07:36 y clonidine AdvReac Mild Drowsiness Verified 07/08/18 07:36 Consultations 10/22/18 07:23 ED Decision to Admit Stat Ordered Studies 10/22/18 06:24 CT angio chest PE protocol Stat Hospital Course (1) Community acquired bacterial pneumonia: RUL, LLL. markedly improved with antibiotics Blood cx's negative. Day #3 each of doxy and unasyn. Doxy will also cover tick-borne infections (see below) will d/c home on Augmentin x 4 more days Doxycycline x 10 more days to cover pneumonia but then also possible tick born illness (2) Asthma with exacerbation: IMPROVED. no wheezing on exam Wean Prednisone to 40mg po daily. Change Duonebs to combivent q6h. Incentive spirometry. Mucinex q12h. taper Prednisone on discharge, decrease by 10mg every 3 days (3) Hypokalemia: Resolved. (4) GERD without esophagitis: Does not take any meds regularly for this. EGD 07/2018 was completely normal. (5) Vitamin B12 deficiency: B12 level <300 several months ago. Now resolved. (6) Myalgia: Likely due to pneumonia. Resolving. Flu PCR negative. Lyme's negative. Mag, B12, and CPK all normal. Tick-borne disease w/u in progress (anaplasmosis, ehrlichia). prescribe Doxycycline x 10 more days for 14 days total this will cover for possible tick born illnesses have PCP follow up on results (7) Essential (primary) hypertension: Continue HCTZ. Continue NIKI. Controlled. (8) Tick bite: Lyme's testing negative. Ehrlichia and anaplasmosis tests sent. Doxycycline for CAP will cover tick-borne disease, if present. (9) Chest pain: Musculoskeletal in nature. Pain is reproducible on exam. Some of it could be pleuritic from her pneumonia as well. Tylenol prn. Toradol prn. K pad heat. Tessalon for cough suppression. Pain not c/w ischemic heart pain. Troponin negative. EKG was w/o ischemic changes. (10) DVT prophylaxis: heparin 5000 BID Total Time Total Time Spent Total Time Spent (In Minutes): 35 minutes Total Time Includes: Examination of the Patient, Discharge Planning and Medication Reconciliation Discharge Plan Discharge Items Patient Disposition: Home - Self-Care Reason For Visit: B/L PNEUMONIA; ASTHMA EXACERBATION Discharge Diagnosis: Bilateral pneumonia Asthma exacerbation Pulmonary nodules Condition: Good Discharge Goals: Improve disease control and Improve function Activity: Resume your previous activity Non-emergency contact: Primary Care Provider Call non-emergency contact if: you have any medication questions, your symptoms worsen and you have a fever Follow-up/Referrals: Krissy Henry DO [Primary Care Provider] - Diet: Heart Healthy Addtl Provider Instructions: Medications: - AMOXICILLIN: take twice a day for 9 more doses to treat pneumonia - DOXYCYCLINE: take twice a day, prescribed for 10 more days to cover potential tick born illness, see below - PREDNISONE: complete a brief taper over next 12 days, see below - MUCINEX: take 1200mg twice a day for a week to loosen sputum, no script, this is over the counter - TESSALON: use as needed for cough Bilateral lower lobe pneumonia responded well to antibiotics, Unasyn and Doxycycline convert to oral antibiotics need 7 day course Possible tick born illness initial Lyme screen negative send out testing for Erlichiosis and Anaplasmosis pending, will be several days prescribed 10 more days of the Doxycycline as this will cover for the above illnesses check with Dr. Henry on follow up on test results Pulmonary nodules: history of this radiology recommended repeat CT of the chest in 8 weeks time to ensure resolution of pneumonia and follow up on nodules please discuss with Dr. Henry to schedule this FOLLOW UP - call office of Dr. Henry tomorrow to scheduled a follow up within 7 days time Prescriptions: New doxycycline hyclate 100 mg Capsule 100 mg PO BID 12 Days Qty: 24 RF: 0 guaifenesin [Mucinex] 600 mg Tablet Extended Release 12hr 1,200 mg PO Q12 Qty: 28 RF: 0 benzonatate [Tessalon Perles] 100 mg Capsule 100 mg PO Q8H PRN (Reason: cough) 7 Days Qty: 21 RF: 0 prednisone 10 mg tablet 40 mg PO UD 12 Days Qty: 30 RF: 0 amoxicillin-pot clavulanate 875-125 mg tablet 1 tab PO Q12H Qty: 9 RF: 0 Continued tramadol 50 mg tablet 50 mg PO QAM RF: 0 lorazepam 0.5 mg tablet 0.5 mg PO HS PRN (Reason: anxiety) RF: 0 lisinopril 10 mg tablet 20 mg PO QAM RF: 0 estradiol 0.5 mg tablet 0.5 mg PO Q2D RF: 0 epinephrine [EpiPen 2-Marko] 0.3 mg/0.3 mL auto-injector 0.3 mg IM Q10M PRN (Reason: Allergic Reaction) RF: 0 hydrochlorothiazide 12.5 mg tablet 12.5 mg PO DIRECTED Qty: 30 RF: 0 albuterol sulfate [ProAir HFA] 90 mcg/actuation Hfa Aerosol Inhaler 2 puff INHALATION Q6H PRN (Reason: Wheezing) RF: 0 Combivent Respimat 20-100 mcg/actuation Mist 1 puff INHALATION DIRECTED PRN (Reason: sob/wheezing) RF: 0 Stand-Alone Forms: [facility] Discharge Orders: Discharge Order (Routine); Ordered 10/24/18 Ordered By: Landen Olmos Admission Data Admit Date/Time: 10/22/18 08:39 Attending Provider: Landen Olmos Admit Provider: Nash Coats Primary Care Provider: Krissy Henry Other Providers: Nash Coats Service: Medical Other Interventions: Discharge Summary Assessment (RN) Last Done: 10/24/18 10:31 DC Date/Time DO NOT enter until pt leaves facility: 10/24/18 12:39
[2018-10-26 19:54] LABS: Anaplasma phagocytophila IgM <1:20 (<1:20); Ehrlichia chaff IgG Ab <1:64 (<1:64); Ehrlichia chaff IgM Ab <1:20 (<1:20)
== END 2018-10-24 12:39 | disposition home or self-care (01) | DRG 194 ==
LOC: ED 05:22 → SUATTDRO 08:39 → 4E 08:39